=== PATIENT | male | born 1955 | race Caucasian/White ===

== ENCOUNTER 2019-01-01 14:03 | Inpatient (IN) | payer MEDICAID ==
[~2019-01-01] VITALS: Ht 182.9 cm; Wt 74.7 kg
[2019-01-01] MEDS ORDERED: SODIUM CHLORIDE FLUSH 10ML SYR IVF ONE (14:30)
[2019-01-01 14:44] LABS: BASOPHILS % (AUTO) 1 % (0-1); EOSINOPHILS # (AUTO) 0.14 x10^3/uL (0-0.4); EOSINOPHILS % (AUTO) 1 % (1-7); LYMPHOCYTES # (AUTO) 1.52 x10^3/uL (1-3.4); LYMPHOCYTES % (AUTO) 14 % (22-44); MD NO; MEAN CORPUSCULAR HEMOGLOBIN 30.4 pg (27.5-34.5); MEAN CORPUSCULAR HGB CONC 32.8 g/dL (33.2-36.2); MEAN CORPUSCULAR VOLUME 92.8 fL (81-97); MEAN PLATELET VOLUME 8.2 fL (7.4-10.4); MONOCYTES # (AUTO) 1.37 x10^3/uL (0.2-0.8); MONOCYTES % (AUTO) 13 % (2-9); NEUTROPHILS # (AUTO) 7.42 x10^3/uL (1.8-6.8); NEUTROPHILS % (AUTO) 70 % (42-75); PLATELET COUNT 355 x10^3/uL (130-400); RED BLOOD COUNT 4.39 x10^6/uL (4.38-5.82); RED CELL DISTRIBUTION WIDTH 16.6 % (9.4-14.8)
[2019-01-01 14:51] LABS: ALBUMIN 3.7 g/dL (3.4-5.0); ANION GAP 5 mmol/L (5-15); CHLORIDE 103 mmol/L (98-107); CREATININE 1.53 mg/dL (0.7-1.3)
[2019-01-01] MEDS ORDERED: NITROGLYCERIN SINGLE TAB 0.4 MG SL PRN (15:00)
[2019-01-01 15:03] LABS: TROPONIN I 0.436 ng/mL (0.000-0.045)
--- NOTE | 2019-01-01 15:05 | NUR ---
PT PRESENTED TO ED WITH MID BACK PAIN SINCE THIS AM. PT STATED THE HAS HAD AN ID IN 2012. PT TAKES PRAVASTATIN
[2019-01-01] MEDS ORDERED: NITROGLYCERIN SINGLE TAB 0.4 MG SL ONE (15:13)
[2019-01-01] MEDS ORDERED: HEPARIN 25,000 UNITS/500ML PMX 500 ML IV PRN (15:30)
[2019-01-01] MEDS ORDERED: HEPARIN 5,000 UNITS/ML, 1ML IV PRN (15:30)
[2019-01-01] MEDS ORDERED: HEPARIN 5,000 UNITS/ML, 1ML IV ONE (15:30)
--- NOTE | 2019-01-01 15:50 | NUR ---
PT UP TO BR
[2019-01-01] MEDS ORDERED: HEPARIN 5,000 UNITS/ML, 1ML ONE (15:53)
[2019-01-01] MEDS ORDERED: HEPARIN 25,000 UNITS/500ML PMX 500 ML ONE (15:54)
--- NOTE | 2019-01-01 16:11 | NUR ---
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 PT STARTED ON HEPARIN GTT. ANTI XA DRAWN 0.000 AT 14:30 PRIOR TO HEPARIN STARTED.
[2019-01-01] MEDS ORDERED: PRAV40TA2 PO (16:13)
[2019-01-01] MEDS ORDERED: ONDANSETRON 2MG/ML, 2ML IVPush PRN (16:30)
[2019-01-01] MEDS ORDERED: POLYETHYLENE GLYCOL 17 GM PACKET PO PRN (16:30)
[2019-01-01] MEDS ORDERED: morphine SULFATE 10 MG/ML, 1ML IVPush PRN (16:30)
[2019-01-01] MEDS ORDERED: LABETALOL 5MG/ML, 20ML IVPush PRN (16:30)
[2019-01-01] MEDS ORDERED: ONDANSETRON ODT 4 MG PO PRN (16:30)
[2019-01-01 16:37] LABS: CHOL/HDL RATIO 1.6; FREE T4 (FREE THYROXINE) 0.92 ng/dL (0.76-1.46); LDL/HDL RATIO 0.6 (0.5-3.0)
--- NOTE | 2019-01-01 16:45 | NUR ---
PT RESTING IN BED. PT GIVEN WATER.
[2019-01-01 17:19] LABS: HEMOGLOBIN A1C 5.1 % (4.2-6.3)
--- NOTE | 2019-01-01 18:15 | NUR ---
pt resting in bed.
--- NOTE | 2019-01-01 19:16 | NUR ---
REPORT RECEIVED FROM MEGAN BOYD. PT IS RESTING IN [facility] UPDATED
--- NOTE | 2019-01-01 19:21 | NUR ---
report given to geraldine
--- NOTE | 2019-01-01 20:06 | NUR ---
STOPPED HEP GTT D/T BLEEDING STOOLS DR PEREZ WAS NOTIFIED
[2019-01-01] MEDS ORDERED: hydrALAzine 20 MG/ML, 1ML ONE (20:19)
[2019-01-01] MEDS: SODIUM CHLORIDE 0.45% 500 ML IV SCH (20:24)
--- NOTE | 2019-01-01 20:25 | NUR ---
GIVEN HYDRALAZINE IV PER BP PT IS RESTING NOW
[2019-01-01] MEDS ORDERED: hydrALAzine 20 MG/ML, 1ML IV PRN (20:30)
[2019-01-01] MEDS ORDERED: PRAVASTATIN 20 MG TABLET PO SCH (21:00)
--- NOTE | 2019-01-01 21:54 | NUR ---
GIVEN WHITE HAT FOR COLLECTING OF STOOLS PT UNDERSTOOD PT UP USING URINAL
[2019-01-01] MEDS ORDERED: ALBUTEROL SULFATE 2.5 MG/3 ML NPPB PRN (22:00)
[2019-01-01 23:28] LABS: OCCULT BLOOD POSITIVE (NEGATIVE)
--- NOTE | 2019-01-01 23:54 | NUR ---
given report to dorita rivera pt will be transferred to tele floor
[2019-01-02 00:15] VITALS: BP 155/54
[2019-01-02 04:00] VITALS: BP 157/85
[2019-01-02 06:26] LABS: ALBUMIN 2.8 g/dL (3.4-5.0); ANION GAP 6 mmol/L (5-15); CALCIUM 8.4 mg/dL (8.5-10.1); CHLORIDE 107 mmol/L (98-107)
[2019-01-02 06:36] LABS: ALANINE AMINOTRANSFERASE 24 U/L (12-78); ALKALINE PHOSPHATASE 55 U/L (45-117); BILIRUBIN,TOTAL 0.5 mg/dL (0.2-1.0); CHOL/HDL RATIO 1.6; CHOLESTEROL, TOTAL 179 mg/dL (140-239); CREATININE 1.21 mg/dL (0.7-1.3); HDL CHOL % 61 % (26-37); HDL CHOLESTEROL (DIRECT) 109 mg/dL (40-60); LDL CHOLESTEROL,CALCULATED 57 mg/dL (54-169); LDL/HDL RATIO 0.5 (0.5-3.0); TOTAL PROTEIN 5.8 g/dL (6.4-8.2); TRIGLYCERIDES 66 mg/dL (50-200); VLDL CHOLESTEROL 13 mg/dL (0-25)
[2019-01-02 06:37] LABS: BASOPHILS # (AUTO) 0.02 x10^3/uL (0-0.1); BASOPHILS % (AUTO) 0 % (0-1); EOSINOPHILS # (AUTO) 0.61 x10^3/uL (0-0.4); EOSINOPHILS % (AUTO) 9 % (1-7); LYMPHOCYTES # (AUTO) 1.56 x10^3/uL (1-3.4); LYMPHOCYTES % (AUTO) 23 % (22-44); MD NO; MEAN CORPUSCULAR HEMOGLOBIN 30.9 pg (27.5-34.5); MEAN CORPUSCULAR HGB CONC 33.3 g/dL (33.2-36.2); MEAN CORPUSCULAR VOLUME 92.8 fL (81-97); MEAN PLATELET VOLUME 8.5 fL (7.4-10.4); MONOCYTES # (AUTO) 0.82 x10^3/uL (0.2-0.8); MONOCYTES % (AUTO) 12 % (2-9); NEUTROPHILS % (AUTO) 55 % (42-75); PLATELET COUNT 295 x10^3/uL (130-400); RED CELL DISTRIBUTION WIDTH 16.6 % (9.4-14.8)
[2019-01-02 07:13] VITALS: BP 146/77
[2019-01-02] MEDS ORDERED: POTASSIUM CHLORIDE 20 MEQ TAB.ER.PRT PO ONE ×2 (08:30→11:30)
[2019-01-02] MEDS ORDERED: SENNA/DOCUSATE TABLET PO SCH (09:00)
[2019-01-02] MEDS ORDERED: ISOSORBIDE MONONITRATE ER 30 MG TABLET PO SCH (09:30)
[2019-01-02] MEDS: SODIUM CHLORIDE 0.45% 500 ML IV SCH (10:32)
[2019-01-02] MEDS ORDERED: RIFA200T5 PO (10:40)
[2019-01-02] MEDS ORDERED: BUDE3CAP2 PO (10:40)
[2019-01-02] MEDS ORDERED: METO25TA35 PO (13:11)
[2019-01-02] MEDS ORDERED: ATOR40TA78 PO (13:11)
[2019-01-02] MEDS ORDERED: ISOS30TA8 PO (13:11)
[2019-01-02 13:45] VITALS: BP 149/84
[2019-01-02] MEDS ORDERED: METOPROLOL TARTRATE 25 MG TABLET PO SCH (18:00)
[2019-01-02] MEDS ORDERED: ATORVASTATIN 40 MG TABLET PO SCH (21:00)
== END 2019-01-02 17:20 | disposition home or self-care (01) | DRG 281 ==
LOC: ED 15:41 → EDIP 15:42 → ED 16:57 → 5SO 01-02 00:09 → DCLOUNGE 01-02 17:15
PROVIDERS: ADMIT Hospitalist; ATTEND Hospitalist
DX: I21.4 Non-ST elevation (NSTEMI) myocardial infarction (principal); K51.911 Ulcerative colitis, unspecified with rectal bleeding; D64.9 Anemia, unspecified; E78.5 Hyperlipidemia, unspecified; I10 Essential (primary) hypertension; J45.909 Unspecified asthma, uncomplicated; M54.9 Dorsalgia, unspecified; I25.10 Atherosclerotic heart disease of native coronary artery without angina pectoris; R73.9 Hyperglycemia, unspecified; N28.9 Disorder of kidney and ureter, unspecified; Z85.038 Personal history of other malignant neoplasm of large intestine; Z87.891 Personal history of nicotine dependence; Z90.49 Acquired absence of other specified parts of digestive tract; Z95.5 Presence of coronary angioplasty implant and graft
CPT/HCPCS: 36415; 71045; 80048; 80053; 80061; 82040; 82272; 83036; 83735; 83880; 84100; 84439; 84443; 84484; 85014; 85018; 85025; 85520; 93005; 93306; J1644; J0360